=== PATIENT | female | born 1965 | race Caucasian/White ===

== ENCOUNTER → 2018-12-19 17:58 | Emergency (ER) | payer OTHER ==
[~2018-12-19 17:58] MED LIST: Flumazenil* 0.1 MG/ML 5 ML MDV ONE; Ibuprofen TAB* 600 MG PO ONE; Midazolam* 1 MG/ML 10 ML VIAL (10 MG) ONE; Naloxone* 0.4 MG/ML 1 ML VIAL ONE; fentaNYL* 50 MCG/ML 2 ML VIAL (100 MCG VIAL) IV SLOW PU ONE; fentaNYL* 50 MCG/ML 5 ML VIAL (250 MCG VIAL) ONE; oxyCODONE/Acetamin 5/325 MG* TAB PO ONE
--- NOTE | 2018-12-19 19:25 | ED ---
Lower Extremity - HPI Summary HPI Summary: 53 year old female presents with right ankle injury today. She states he twisted her ankle while slipping on black ice. She has deformity noted to her ankle. She is unable to place weight on the area. Denies any previous fracture to the area. No numbness or tingling. Denies any knee pain. No other injury. - History of Current Complaint Chief Complaint: EDExtremityLower Stated Complaint: "FELL ON ICE,INJURED ANKLE" PER PT Time Seen by Provider: 12/19/18 18:18 Pain Intensity: 6 - Allergies/Home Medications Allergies/Adverse Reactions: Allergies Allergy/AdvReac Type Severity Reaction Status Date / Time No Known Allergies Allergy Verified 12/19/18 18:16 Home Medications: Home Medications Multivitamin [Multivitamins] 1 cap PO DAILY 12/19/18 [History Confirmed 12/19/18 ] PMH/Surg Hx/FS Hx/Imm Hx Endocrine/Hematology History: Denies: Hx Diabetes, Hx Thyroid Disease Cardiovascular History: Denies: Hx Hypercholesterolemia, Hx Hypertension, Hx Pacemaker/ICD, Hx Peripheral Vascular Disease Musculoskeletal History: Denies: Hx Arthritis, Hx Osteoporosis Sensory History: Denies: Hx Cataracts, Hx Contacts or Glasses, Hx Glaucoma, Hx Hearing Aid Opthamlomology History: Denies: Hx Cataracts, Hx Contacts or Glasses, Hx Glaucoma Neurological History: Denies: Hx Headaches, Hx Seizures, Hx Transient Ischemic Attacks (TIA) Psychiatric History: Denies: Hx Anxiety, Hx Depression, Hx Panic Disorder - Cancer History Hx Chemotherapy: No Hx Radiation Therapy: No - Surgical History Surgery Procedure, Year, and Place: OBGYN surgery 2011 outpatient check for pre- cancer cells Ovarian Cyst removal 1980. Ovary removal age 16 Infectious Disease History: No Infectious Disease History: Denies: Traveled Outside the [place] in Last 30 Days - Social History Alcohol Use: None Substance Use Type: Reports: None Smoking Status (MU): Never Smoked Tobacco Review of Systems Negative: Fever Negative: Chest Pain Negative: Shortness Of Breath Positive: Myalgia - right ankle deformity All Other Systems Reviewed And Are Negative: Yes Physical Exam Triage Information Reviewed: Yes Vital Signs On Initial Exam: Initial Vitals Temp Pulse Resp BP Pulse Ox 99.3 F 82 16 145/79 98 12/19/18 18:14 12/19/18 18:14 12/19/18 18:14 12/19/18 18:14 12/19/18 18:14 Vital Signs Reviewed: Yes Appearance: Positive: Well-Appearing Skin: Positive: Warm, Dry Head/Face: Positive: Normal Head/Face Inspection Eyes: Positive: Normal, Conjunctiva Clear ENT: Positive: Pharynx normal Respiratory/Lung Sounds: Positive: Clear to Auscultation, Breath Sounds Present Cardiovascular: Positive: Normal, RRR Musculoskeletal: Positive: Other - deformity to right ankle, good pulses Neurological: Positive: Normal Psychiatric: Positive: Normal Procedures - Splinting right ankle Location: right ankle Hand-Made Type: orthoglass Splint: posterior walking Pre-Proc Neuro Vasc Exam: normal Post-Proc Neuro Vasc Exam: normal - Joint Reduction ankle Joint Reduction Site: ankle (R) Conscious Sedation: Yes Reduction Attempts: 1 Pre-Procedure NV Exam: Yes Post Joint Reduction Film: joint reduced Diagnostics - Vital Signs Vital Signs Temp Pulse Resp BP Pulse Ox 12/19/18 18:14 99.3 F 82 16 145/79 98 - Laboratory Lab Statement: Any lab studies that have been ordered have been reviewed, and results considered in the medical decision making process. - Radiology ankle Radiology Interpretation Completed By: ED Physician Summary of Radiographic Findings: ankle dislocation post reduction Radiology Interpretation Completed By: ED Physician Summary of Radiographic Findings: trimalleolar fracture Lower Extremity Course/Dx - Course Course Of Treatment: 53 year old female presents with right ankle injury today. She states he twisted her ankle while slipping on black ice. She has deformity noted to her ankle. She is unable to place weight on the area. Denies any previous fracture to the area. No numbness or tingling. Denies any knee pain. No other injury. On exam has deformity noted to right ankle. X- ray shows ankle dislocation with fibula and tibia fracture. conscious sedation performed with dr still. reduced ankle. place in posterior walking and sugar tong splint. xray shows is relocated. appears to have trimalleolar fracture. told to practice RICE and stay nonweight bearing. told follow up with ortho. patient understand and agrees with plan. - Diagnoses Differential Diagnosis/HQI/PQRI: Positive: Dislocation, Fracture (Closed), Sprain Provider Diagnoses: Ankle dislocation, Ankle fracture, right Discharge - Sign-Out/Discharge Documenting (check all that apply): Patient Departure Patient Received Moderate/Deep Sedation with Procedure: Yes - Discharge Plan Condition: Good Disposition: HOME Prescriptions: oxyCODONE/Acetamin 5/325 MG* [Percocet 5/325 TAB*] 1 tab PO Q6H PRN #16 tab MDD 4 PRN Reason: Pain Patient Education Materials: Ankle Fracture (ED), Moderate Sedation (ED) Referrals: Elaine Oliver NP [Primary Care Provider] - Saulo Murguia MD [Medical Doctor] - Additional Instructions: Use crutches and stay nonweight bearing Keep splint on area and keep dry Call ortho office tomorrow to set up appointment for follow up Use ibuprofen or tyenlol for pain every 6 hours and use narcotic for breakthrough pain Ice, elevate Return to ED if develop any new or worsening symptoms - Billing Disposition and Condition Condition: GOOD Disposition: Home
--- NOTE | 2018-12-19 21:33 | ED ---
Progress - Progress Note Progress Note: ED PROVIDER SAW PATIENT AT REQUEST OF JAKUB CLIFFORD FOR CONSCIOUS SEDATION. 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 Pt was leaving work when she slipped on ice and injured her RLE. - Results/Orders Results/Orders: VITAL SIGNS: Reviewed. GENERAL: Patient is a well-developed and nourished FEMALE who is lying comfortable in the stretcher. Patient is not in any acute respiratory distress. HEAD AND FACE: No signs of trauma. No ecchymosis, hematomas or skull depressions. No sinus tenderness. EYES: PERRLA, EOMI x 2, No injected conjunctiva, no nystagmus. EARS: Hearing grossly intact. Ear canals and tympanic membranes are within normal limits. MOUTH: Oropharynx within normal limits. NECK: Supple, trachea is midline, no adenopathy, no JVD, no carotid bruit, no c- spine tenderness, neck with full ROM. CHEST: Symmetric, no tenderness at palpation LUNGS: Clear to auscultation bilaterally. No wheezing or crackles. CVS: Regular rate and rhythm, S1 and S2 present, no murmurs or gallops appreciated. ABDOMEN: Soft, non-tender. No signs of distention. No rebound, no guarding, and no masses palpated. Bowel sounds are normal. EXTREMITIES: R ankle deformity, otherwise FROM in all major joints, no edema, no cyanosis or clubbing. Good capillary refill. Good pulses. NEURO: Alert and oriented x 3. No acute neurological deficits. Speech is normal and follows commands. SKIN: Dry and warm Course/Dx - Course Course Of Treatment: PROCEDURE NOTE: Procedural Sedation. Indications: Ankle dislocation and reduction. Melbeta Protocol: a timeout was performed and the correct patient and site were verified. Consent: The risks and benefits of monitored anesthesia care, including the risk of aspiration, deep sedation requiring airway management including possible intubation, nausea and vomiting and the risks of not performing the procedure, including severe pain and inability to complete the procedure, were all discussed with the patient. The alternatives of performing the procedure, including local anesthesia and IV analgesia, also discussed. The patient has a ride home available. ASA Class: II -mild systemic disease. Pre-anesthesia evaluation, including history, exam, and informed consent is documented in the ED note above. Monitoring: Continuous monitoring of heart rate, respiratory rate, pulse oximetry and ETCO2. Supplemental oxygen prior to and during procedure via nasal cannula. Resuscitation equipment available at the bedside during sedation. The patient received Versed and Fentanyl and dosages were recorded on the sedation form. The patient was recovered from the sedation without complication or incident. Patient returned to pre-sedation level of awareness. The monitoring was discontinued at this time. Post-anesthesia evaluation: Stable. Respiratory function, cardiovascular function, temperature, and mental status did return to pre-anesthetic state. Pain is controlled. - Diagnoses Provider Diagnoses: Ankle dislocation, Ankle fracture, right Discharge - Sign-Out/Discharge Documenting (check all that apply): Patient Departure Signing out patient TO: Meredith Stein Patient Received Moderate/Deep Sedation with Procedure: Yes - Discharge Plan Condition: Stable Disposition: HOME Prescriptions: oxyCODONE/Acetamin 5/325 MG* [Percocet 5/325 TAB*] 1 tab PO Q6H PRN #16 tab MDD 4 PRN Reason: Pain Patient Education Materials: Ankle Fracture (ED) Referrals: Elaine Oliver NP [Primary Care Provider] - Saulo Murguia MD [Medical Doctor] - Additional Instructions: Use crutches and stay nonweight bearing Keep splint on area and keep dry Call ortho office tomorrow to set up appointment for follow up Use ibuprofen or tyenlol for pain every 6 hours and use narcotic for breakthrough pain Ice, elevate Return to ED if develop any new or worsening symptoms - Billing Disposition and Condition Condition: STABLE Disposition: Home - Attestation Statements Document Initiated by Scribe: Yes Documenting Scribe: Davidson Mendenhall Provider For Whom Darrion is Documenting (Include Credential): Dr. Nitish George MD Scribe Attestation: Davidson Randall, scribed for Dr. Nitish George MD on 12/19/18 at 2214. Scribe Documentation Reviewed: Yes Provider Attestation: The documentation as recorded by the Davidson trevino accurately reflects the service I personally performed and the decisions made by , Dr. Nitish George MD Status of Scribe Document: Viewed
[2018-12-19 22:41] VITALS: BP 126/74
== END | disposition home or self-care (01) ==
LOC: ED 17:58
DX: S82.851A Displaced trimalleolar fracture of right lower leg, initial encounter for closed fracture (principal); S93.04XA Dislocation of right ankle joint, initial encounter; W00.0XXA Fall on same level due to ice and snow, initial encounter; Y92.9 Unspecified place or not applicable
CPT/HCPCS: 27818; 96374; 99284; A9270-GY; J2250; J2310; J3010

== ENCOUNTER 2019-09-17 07:18 | Day surgery (SDC) | payer OTHER ==
[~2019-09-17 07:18] MED LIST changes: +Buffered Lidocaine 1% SYRIN* 1 ML/SYRINGE INTRADERM ONE; -Flumazenil* 0.1 MG/ML 5 ML MDV ONE; -Ibuprofen TAB* 600 MG PO ONE; +Lactated Ringers 1000 ML Bag* 1,000 ML IV SCH; -Midazolam* 1 MG/ML 10 ML VIAL (10 MG) ONE; -Naloxone* 0.4 MG/ML 1 ML VIAL ONE; -fentaNYL* 50 MCG/ML 2 ML VIAL (100 MCG VIAL) IV SLOW PU ONE; -fentaNYL* 50 MCG/ML 5 ML VIAL (250 MCG VIAL) ONE; -oxyCODONE/Acetamin 5/325 MG* TAB PO ONE
[2019-09-17] MEDS ORDERED: ceFAZolin 2 GM in NS PREMIX(*) 2 GM/100 ML BAG IVPB ONE (08:09)
[2019-09-17] MEDS ORDERED: Buffered Lidocaine 1% SYRIN* 1 ML/SYRINGE INTRADERM ONE (08:09)
[2019-09-17] MEDS ORDERED: Midazolam* 1 MG/ML 2 ML VIAL (2 MG) ONE (08:20)
[2019-09-17] MEDS ORDERED: Propofol* 10 MG/ML 20 ML BTL ONE (08:20)
[2019-09-17] MEDS ORDERED: fentaNYL* 50 MCG/ML 2 ML VIAL (100 MCG VIAL) ONE (08:21)
[2019-09-17] MEDS ORDERED: Lidocaine 2% PF * 5 ML VIAL ONE (08:21)
[2019-09-17] MEDS ORDERED: Dexamethasone IV* 4 MG/ML 1 ML (4 MG) ONE ×2 (08:23→09:51)
[2019-09-17] MEDS ORDERED: Ondansetron INJ* 2 MG/ML VIAL ONE ×2 (08:23→09:51)
[2019-09-17] MEDS ORDERED: Ketorolac INJ* 30 MG/ML 1 ML VIAL ONE ×2 (08:23→09:51)
[2019-09-17] MEDS ORDERED: Metoclopramide IV* 5 MG/ML 2 ML VIAL ONE ×2 (08:23→09:51)
[2019-09-17] MEDS ORDERED: Bupivacaine 0.25% SDV* 30 ML ONE (09:06)
[2019-09-17] MEDS ORDERED: Bupivacaine 0.5%* 50 ML MDV VIAL ONE ×2 (09:06→09:15)
[2019-09-17] MEDS ORDERED: Bupivacaine 0.25% SDV PF* 10 ML VIAL INJ ONE (09:16)
[2019-09-17] MEDS ORDERED: EPHEDrine (Pressors)* 50 MG/ML VIAL ONE (09:51)
[2019-09-17] MEDS ORDERED: Acetaminophen TAB* 325 MG PO PRN (10:13)
[2019-09-17] MEDS ORDERED: DiMENhydriNATE IV* 50 MG/ML VIAL IV PUSH PRN (10:13)
[2019-09-17] MEDS ORDERED: Naloxone* 0.4 MG/ML 1 ML VIAL IV PRN (10:13)
[2019-09-17] MEDS ORDERED: fentaNYL* 50 MCG/ML 2 ML VIAL (100 MCG VIAL) IV PRN (10:13)
[2019-09-17] MEDS ORDERED: oxyCODONE TAB* 5 MG TAB PO PRN (10:13)
--- NOTE | 2019-09-17 10:41 | OP ---
Operative Report - Blank - Operative Report Date of Operation: 09/17/19 Note: PATIENT: Merissa Perez DATE OF : 1965 DATE OF SURGERY: 09/17/2019 SURGEON: Michael Escudero MD SENIOR PRODUCT DEVELOPMENT MANAGER: JAKUB Galvez, whos assistance was necessary for positioning, retraction, help with instrumentation, and closure. ANESTHESIOLOGIST: Dr. Hisrch PREOPERATIVE DIAGNOSIS: Right ankle synovitis and painful retained hardware. POSTOPERATIVE DIAGNOSIS: Right ankle synovitis, osteochondral lesion of the medial talar dome and painful retained hardware. OPERATION: 1. Right ankle arthroscopy with extensive debridement. 2. Curettage and microfracture of talar osteochondral lesion. 3. Right medial ankle removal of deep hardware. ANESTHESIA: General IMPLANTS: none TOURNIQUET TIME: Less than one hour with a well-padded thigh tourniquet at 250 mmHg. SPECIMENS: none ESTIMATED BLOOD LOSS: minimal COMPLICATIONS: none STATUS: Stable from the operating room to the recovery room and then home. INDICATIONS FOR PROCEDURE: Merissa has had persistent pain after her prior ankle fracture ORIF. Pain is at the medial ankle. We discussed an ankle arthroscopy and addressing any pathology if found, as well as removing the medial ankle hardware. Both operative and non operative treatment alternatives were reviewed. Further, the nature and risks of surgery were reviewed in careful detail, in the office as well as the pre-operative holding area. Our discussions regarding the risks of surgery included, but were not limited to, infection, wound problems, nerve injury, neuroma, RSD, persistent symptoms, blood clot, fracture, failure of the surgery, and even the remote chance of catastrophic complication. DESCRIPTION OF PROCEDURE: The patient was seen in the preoperative holding unit and informed written consent was obtained. The appropriate extremity was marked. The patient was then brought to the operating room and carefully positioned on the operating room table. Anesthesia was induced. All bony prominences were padded with great care. A chlorhexidine based pre-scrub was performed followed by a chloraprep prep and drape in standard sterile fashion. A surgical safety pause was then conducted in which we confirmed the appropriate patient, extremity, planned procedure, availability of equipment, indication and administration of prophylactic antibiotics, and DVT prophylaxis in the form of a compression boot on the non-surgical extremity. An Esmarch exsanguination of the limb was then performed and the tourniquet inflated. The leg was positioned in the noninvasive ankle arthroscopy leg carballo setup. I began by establishing the anteromedial portal. I utilized a spinal needle for this. Great care was taken to protect the superficial neurovascular structures. Under direct visualization, I then established an anterolateral portal. Great care was taken to protect the superficial peroneal nerve. I utilized the full radius shaver to remove a considerable amount of synovitis from throughout the ankle joint. This was carefully removed to give a nice view of the ankle joint. I stressed the syndesmosis and no instability was appreciated. There was an osteochondral lesion of the talus at the medial talar dome. There was some mild cartilage fraying at the posteromedial tibial plafond as well. At this point, I utilized a ringed curette to remove loose debris from within the talar osteochondral lesion. This was curetted back to a stable rim around the perimeter of lesion. The calcified cartilage layer was then removed. I then utilized the microfracture awl to microfracture the lesion. There was healthy bleeding from the bone. I then again utilized the full radius shaver to remove all additional debris from the ankle joint. I removed the arthroscopic equipment and closed the portals utilizing 3-0 nylon suture. I then utilized her prior medial ankle incision to expose the medial malleolus. The screw was located and removed without difficulty. There was no obvious damage to the posterior tibial tendon. Fluoroscopy was used to confirm removal of the medial hardware. The wound is then copiously irrigated and closed in layers utilizing 3-0 Monocryl and 3-0 nylon. At this point, a sterile dressing was applied. The patient was then awakened from anesthesia and transferred to the recovery room in stable condition. There were no complications. All needle and sponge counts were correct at the end of the case. ATTESTATION: I attest I was present and scrubbed and performed the critical portions of the procedure myself. POSTOPERATIVE PLAN: The patient will remain nonweightbearing for an anticipated duration of 2 weeks. Follow up will be in two weeks for likely suture removal, Steri-Strip application and progression of weight-bearing a tall Aircast boot. The patient may begin gentle active dorsiflexion and plantarflexion of the ankle beginning two weeks postoperatively.
[2019-09-17 11:37] VITALS: BP 123/80
== END 2019-09-17 12:04 | disposition home or self-care (01) ==
LOC: OR 07:18
PROVIDERS: ATTEND Orthopaedic Surgery
DX: M93.871 Other specified osteochondropathies, right ankle and foot (principal); M65.871 Other synovitis and tenosynovitis, right ankle and foot; T84.84XA Pain due to internal orthopedic prosthetic devices, implants and grafts, initial encounter; Y83.1 Surgical operation with implant of artificial internal device as the cause of abnormal reaction of the patient, or of later complication, without mention of misadventure at the time of the procedure; S82.51XS Displaced fracture of medial malleolus of right tibia, sequela; X58.XXXS Exposure to other specified factors, sequela; Y92.9 Unspecified place or not applicable
CPT/HCPCS: 76000; 88300; J0690; J1100; J1885; J2250; J2405; J2704; J2765; J3010; J3490

== ENCOUNTER 2019-11-23 11:12 | Emergency (ER) | payer OTHER ==
[2019-11-23 11:48] VITALS: BP 103/72
[2019-11-23 12:25] LABS: Influenza A Molecular Negative (Negative); Influenza B Molecular Negative (Negative)
--- NOTE | 2019-11-23 12:39 | UC ---
Throat Pain/Nasal Alan HPI - HPI Summary HPI Summary: 54 y/o female presents to the urgent care c/o painful dry cough, feverish, headache, fatigued and mild sore throat for the past 2-3 days. She has taken Tylenol PO and Nyquill PO to alleviate symptoms w/o any improvement. Pt denies dizziness, ear pain, SOB wheezing, chest pain, abdominal pain, N/V/D. Pt is eating well and drinking fluids. - History of Current Complaint Chief Complaint: UCGeneralIllness Stated Complaint: URI Time Seen by Provider: 11/23/19 12:27 Hx Obtained From: Patient Onset/Duration: Gradual Onset, Lasting Days - 2 days, Still Present Severity: Mild Pain Intensity: 1 - sore throat and body aches Pain Scale Used: 0-10 Numeric Cough: Nonproductive Associated Signs & Symptoms: Positive: Nasal Discharge - clear, Fever. Negative : Dysphagia, Wheezing, Sinus Discomfort, Vomiting, Rash - Allergies/Home Medications Allergies/Adverse Reactions: Allergies Allergy/AdvReac Type Severity Reaction Status Date / Time No Known Allergies Allergy Verified 11/23/19 11:48 PMH/Surg Hx/FS Hx/Imm Hx Previously Healthy: Yes - Pt denies PMHX - Surgical History Surgical History: Yes Surgery Procedure, Year, and Place: 2011 OBGYN surgery [place] [facility]. pre- cancer cells Ovarian Cyst removal 1980. Ovary removal age 16. 12/2018 rt ankle fracture [facility] - Family History Known Family History: Positive: None - Pt denies FMHX - Social History Occupation: Employed Full-time Lives: With Family Alcohol Use: Rare Alcohol Amount: holidays Substance Use Type: None Smoking Status (MU): Former Smoker Type: Cigarettes Amount Used/How Often: pack a day for 25 yrs Have You Smoked in the Last Year: No When Did the Patient Quit Smoking/Using Tobacco: 2004 Review of Systems All Other Systems Reviewed And Are Negative: Yes Constitutional: Positive: Fever - low grade fever, Fatigue, Other - body aches Skin: Positive: Negative Eyes: Positive: Negative ENT: Positive: Sore Throat - mild, Nasal Discharge - clear, Sinus Congestion Respiratory: Positive: Cough - dry Cardiovascular: Positive: Negative Gastrointestinal: Positive: Negative Genitourinary: Positive: Negative Motor: Positive: Negative Neurovascular: Positive: Negative Musculoskeletal: Positive: Myalgia Neurological: Positive: Negative Psychological: Positive: Negative Is Patient Immunocompromised?: No Physical Exam - Summary Physical Exam Summary: VITAL SIGNS: Reviewed. GENERAL: Patient is a well developed and nourished female who is sitting comfortably in the examining table. Patient is not in any acute respiratory distress. HEAD AND FACE: No signs of trauma. No ecchymosis, hematomas or skull depressions. No sinus tenderness. EYES: PERRLA, EOMI x 2, No injected conjunctiva, no nystagmus. No photophobia. EARS: Hearing grossly intact. Ear canals and tympanic membranes are within normal limits. MOUTH: Positive pharynx with mild erythema, no exudates, No B/L tonsillar enlargement , no exudate. Uvula in midline. edematous nasal mucosa w/ clear nasal discharge, clear PND NECK: Supple, trachea is midline, Positive anterior cervical lymphadenopathy, no JVD, no carotid bruit, no c-spine tenderness, neck with full ROM. No meningeal signs, no Kernig's or brudzinskis signs. CHEST: Symmetric, no tenderness at palpation LUNGS: Clear to auscultation bilaterally. No wheezing or crackles. CVS: Regular rate and rhythm, S1 and S2 present, no murmurs or gallops appreciated. ABDOMEN: Soft, non-tender. No signs of distention. No rebound no guarding, and no masses palpated. Bowel sounds are normal. EXTREMITIES: FROM in all major joints, no edema, no cyanosis or clubbing. NEURO: Alert and oriented x 3. No acute neurological deficits. Pt follows commands. SKIN: Dry and warm Triage Information Reviewed: Yes Vital Signs: Initial Vital Signs Temp 100.1 F 11/23/19 11:43 Pulse 107 11/23/19 11:43 Resp 18 11/23/19 11:43 BP 103/72 11/23/19 11:43 Pulse Ox 97 11/23/19 11:43 Throat Pain/Nasal Course/Dx - Course Course Of Treatment: 54 y/o female presents to the urgent care c/o painful dry cough, feverish, headache, fatigued and mild sore throat for the past 2-3 days. She has taken Tylenol PO and Nyquill PO to alleviate symptoms w/o any improvement. Pt denies dizziness, ear pain, SOB wheezing, chest pain, abdominal pain, N/V/D. Pt is eating well and drinking fluids. Denies recent travel outside the country. Hx obtained. Pt w/ URI and cough on examination. Influenza A&B ordered: result: negative. Pt given Ibuprofen PO by nurse to alleviate symptoms. Pt tolerated well medication and felt better. Pt Rx Tessalon PO and Flonase nasal spray to alleviate symptoms. Advised on hand washing. Pt advised to rest, increase fluid intake, eat well and avoid strenuous exercise. If symptoms do not improve or worsen advised to return to the urgent care or f/u with her PCP for further evaluation and treatment. Pt understood and agreed with the plan of care. - Differential Dx/Diagnosis Differential Diagnosis/HQI/PQRI: Influenza, Laryngitis, Otitis Media, Pharyngitis, URI Provider Diagnosis: Upper respiratory infection, Cough Discharge ED - Sign-Out/Discharge Documenting (check all that apply): Patient Departure - D/C home All imaging exams completed and their final reports reviewed: No Studies - Discharge Plan Condition: Stable Disposition: HOME Prescriptions: Benzonatate CAP* [Tessalon 100 MG CAP*] 100 mg PO TID #21 cap Fluticasone NASAL SPRAY 50MCG* [Flonase NASAL SPRAY 50MCG*] 2 spray BOTH NARES DAILY #1 btl Patient Education Materials: Upper Respiratory Infection (ED) Referrals: Elaine Oliver MARKING ROOM SUPERVISOR [Primary Care Provider] - 3 Days Additional Instructions: 1- Please take Tessalon tabs PO as directed to alleviate cough. Encourage hand washing and wear a mask to avoid spreading. 2-Please continue taking Tylenol PO q6-8hrs prn or Ibuprofen PO as instructed after meals to alleviate fever, and sore throat. Increase fluid intake, eat well, rest and avoid strenuous exercise 3- Use saline drops and use the Flonase nasal spray as directed to clear your sinuses 4-If symptoms do not improve or worsen please return to the urgent care or f/u with your PCP in 2-3 days for further evaluation and treatment. - Billing Disposition and Condition Condition: STABLE Disposition: Home
[2019-11-23] MEDS ORDERED: Ibuprofen TAB* 600 MG PO ONE (12:51)
== END 2019-11-23 13:06 | disposition home or self-care (01) ==
LOC: UCEAST 11:12
DX: J06.9 Acute upper respiratory infection, unspecified (principal); R05 Cough; Z87.891 Personal history of nicotine dependence
CPT/HCPCS: 99212; A9270-GY; G0463